=== PATIENT | male | born 1990 | race Caucasian/White ===

== ENCOUNTER → 2022-03-11 | Outpatient (REF) | payer OTHER ==
[2022-03-12 21:10] LABS: ANA (HEP2) Positive (.)
== END ==
LOC: M SFHCRHEU 10:02
PROVIDERS: ATTEND Internal Medicine
DX: R76.8 Other specified abnormal immunological findings in serum (principal)

== ENCOUNTER → 2022-09-09 | Outpatient (REF) | payer OTHER ==
[2022-09-09 14:04] LABS: MAGNESIUM LEVEL 1.9 MG/DL (1.8-2.4)
[2022-09-09 14:07] LABS: THYROID STIMULATING HORMONE 3.6 uIU/ML (0.55-4.78)
[2022-09-09 14:08] LABS: TOTAL 25(OH) VITAMIN D 23.9 NG/ML (20.0-100.0)
== END ==
LOC: M SFHCRHEU 10:42
PROVIDERS: ATTEND Internal Medicine
DX: R53.82 Chronic fatigue, unspecified (principal)
CPT/HCPCS: 82306; 82607; 83540; 83735; 84443; G0463

== ENCOUNTER → 2024-11-26 | Outpatient (CLI) | payer OTHER ==
[~2024-11-26] MED LIST: CARDIAC STRESS TEST RESCUE BOX 1 KIT EA XX ONE; LIDOCAINE 1% MDV 20 ML VIAL As Ordered ONE
[2024-11-26 14:45] VITALS: BP_DIAS 85; TEMP 98.3; O2SAT 99
[2024-11-26 16:07] LABS: CRYSTALS, BODY FLUID NONE SEEN (NONE SEEN); SOURCE, BODY FLUID CRYSTALS RT KNEE
[2024-11-26 16:13] LABS: SOURCE, BODY FLUID GLUCOSE RT KNEE
[2024-11-26 16:14] LABS: SOURCE, BODY FLUID TOT PROTEIN RT KNEE
[2024-11-26 16:25] LABS: SOURCE, BODY FLUID URIC ACID RT KNEE; URIC ACID, BODY FLUID 5.1 MG/DL (NOT ESTABLISHED)
[2024-11-26 18:43] LABS: SOURCE, BODY FLUID RT KNEE
== END ==
LOC: M IRPRO 14:25
PROVIDERS: ATTEND Orthopaedic Surgery
DX: M25.461 Effusion, right knee (principal)